=== PATIENT | female | born 1945 | race Native Hawaiian/Other Pacific Islander ===

== ENCOUNTER 2016-05-22 12:52 | Inpatient (IN) | payer MEDICARE, OTHER ==
[~2016-05-22] VITALS: Ht 152.4 cm; Wt 55.3 kg
[2016-05-22] MEDS ORDERED: MORPHINE SULFATE 2 MG/1 ML DISP.SYRIN IV ONE (13:15)
[2016-05-22] MEDS ORDERED: ONDANSETRON 4 MG/2 ML VIAL IV ONE (13:15)
[2016-05-22] MEDS ORDERED: ONDANSETRON 4 MG/2 ML VIAL ONE (13:25)
[2016-05-22] MEDS ORDERED: MORPHINE SULFATE 4 MG/1 ML DISP.SYRIN ONE (13:25)
[2016-05-22 13:35] LABS: BASOPHILS % (AUTO) 0.8 % (0.0-2.0); EOSINOPHILS # (AUTO) 0.1 K/uL (0.0-0.7); EOSINOPHILS % (AUTO) 1.5 % (0.0-7.0); HEMATOCRIT 40.7 % (37.0-47.0); HEMOGLOBIN 14.2 g/dL (12.0-16.0); LYMPHOCYTES # (AUTO) 2.1 K/uL (0.8-4.8); LYMPHOCYTES % (AUTO) 33.6 % (20.5-51.5); MEAN CORPUSCULAR HGB CONC 35 g/dL (32.0-37.0); MEAN CORPUSCULAR VOLUME 94.5 fL (81.0-99.0); MONOCYTES # (AUTO) 0.3 K/uL (0.1-1.30); NEUTROPHILS # (AUTO) 3.7 K/uL (1.8-8.9); NEUTROPHILS % (AUTO) 59.1 % (38.5-71.5); PLATELET COUNT (AUTO) 208 K/uL (150-450); RED CELL DISTRIBUTION WIDTH 12.8 % (11.5-14.5); WHITE BLOOD COUNT (AUTO) 6.2 K/uL (4.0-11.2)
[2016-05-22 13:40] LABS: *BILIRUBIN,URIN NEGATIVE (NEGATIVE); *BLOOD, URINE NEGATIVE (NEGATIVE); *CLARITY,URINE CLEAR (CLEAR); *COLOR,URINE LIGHT YELLOW (YELLOW); *KETONES,URINE NEGATIVE (NEGATIVE); *PROTEIN,URINE NEGATIVE (NEGATIVE); *UROBILINOGEN,URINE 0.2 E.U./dl (NORMAL); LEUKOCYTE ESTERASE ,URINE NEGATIVE (NEGATIVE); NITRITE, URINE NEGATIVE (NEGATIVE); UGLUCOSE NEGATIVE (NEGATIVE)
[2016-05-22 13:43] LABS: CALCIUM 9.1 mg/dL (8.5-10.1); CARBON DIOXIDE 31 mmol/L (21-32); CHLORIDE 103 mmol/L (98-107); CREATININE 0.7 mg/dL (0.6-1.3); ETHANOL < 3 MG/DL (0-0); GFR 83 mL/min (>60); GLUCOSE 98 mg/dL (74-106); POTASSIUM 3.6 mmol/L (3.5-5.1); SODIUM SERUM 142 mmol/L (136-145); UREA NITROGEN, BLOOD 18 mg/dL (7-18)
[2016-05-22 13:49] LABS: ALANINE AMINOTRANSFERASE 36 U/L (14-59); ALKALINE PHOSPHATASE 56 U/L (50-136); ASPARTATE AMINOTRANSFERASE 24 U/L (15-37); BACTERIA,URINE NONE SEEN /HPF (NONE SEEN); BILIRUBIN,DIRECT 0.1 mg/dL (0.0-0.2); BILIRUBIN,TOTAL 0.4 mg/dL (0.2-1.0); RBC,URINE 0-3 /HPF (0-3); SQUAMOUS EPITHELIAL CELL,UR FEW /HPF (NONE SEEN); TOTAL PROTEIN, SERUM 7.2 g/dL (6.4-8.2); WBC,URINE 0-3 /HPF (0-3)
[2016-05-22 13:50] LABS: ACETAMINOPHEN < 2.0 ug/mL (10-30); TROPONIN I < 0.017 ng/mL (0.00-0.056)
[2016-05-22 13:51] LABS: *AMPHETAMINE, URINE NEGATIVE (NEGATIVE); *BARBITURATE, URINE NEGATIVE (NEGATIVE); *CANNABINOID, URINE NEGATIVE (NEGATIVE); *COCCAINE, URINE NEGATIVE (NEGATIVE); *OPIATE, URINE POSITIVE (NEGATIVE); *PHENCYCLIDINE SCREEN,URINE NEGATIVE (NEGATIVE); AMMONIA 22 umol/L (11-32)
[2016-05-22 13:58] LABS: LACTIC ACID 0.6 mmol/L (0.4-2.0)
--- NOTE | 2016-05-22 14:02 | NUR ---
Patient is resting comfortably in bed with eyes closed, NAD
[2016-05-22] MEDS ORDERED: ASPI81TA44 PO (16:13)
[2016-05-22] MEDS ORDERED: CELEBREX (16:28)
[2016-05-22] MEDS ORDERED: FLUOXETINE (16:28)
[2016-05-22] MEDS ORDERED: LINZESS (16:28)
[2016-05-22] MEDS ORDERED: VALSARTAN (16:28)
[2016-05-22] MEDS ORDERED: LORTAB (16:28)
[2016-05-22] MEDS ORDERED: BENADRYL (16:28)
[2016-05-22] MEDS ORDERED: AMBIEN (16:28)
[2016-05-22] MEDS ORDERED: GABAPENTIN (16:28)
[2016-05-22] MEDS ORDERED: CREON (16:28)
[2016-05-22] MEDS ORDERED: NORVASC (16:28)
[2016-05-22 17:00] VITALS: BP 156/88
[2016-05-22] MEDS ORDERED: ONDANSETRON 4 MG/2 ML VIAL IV PRN (17:30)
[2016-05-22] MEDS ORDERED: Z GUARD REMEDY PASTE 57 GM TUBE TOP PRN (17:30)
[2016-05-22] MEDS ORDERED: hydrALAZINE HCL 25 MG TABLET PO PRN (18:15)
[2016-05-22] MEDS: MORPHINE SULFATE 2 MG/1 ML DISP.SYRIN IV PRN (19:28)
[2016-05-22 19:31] VITALS: BP 95/58
--- NOTE | 2016-05-22 20:00 | NUR ---
RECEIVED PATIENT AWAKE IN BED. PATIENT IS A/O X4. MOHAWK SPEAKING BUT SPEAKS MINIMAL EQUATORIAL GUINEAN AND ABLE TO MAKE NEEDS KNOWN. NO C/O PAIN AT THIS TIME. PATIENT WAS PREVIOUSLY MEDICATED WITH MORPHINE 2MG IV PER DAYSHIFT RN. VSKay. NO RESP. DISTRESS NOTED. H/L INTACT AND PATENT. BED ALARM ON. CALL LIGHT IN REACH. ALL NEEDS ATTENDED. WILL CONTINUE TO MONITOR.
--- NOTE | 2016-05-22 20:15 | NUR ---
PATIENT ON TELE SR.
[2016-05-22 20:18] VITALS: BP 106/60
[2016-05-22] MEDS: LORATADINE 10 MG TABLET PO SCH (20:42)
[2016-05-22] MEDS: ACETAMINOPHEN 325 MG TABLET PO PRN (22:59)
--- NOTE | 2016-05-22 23:00 | NUR ---
PATIENT AWAKE IN BED. C/O GENERALIZED DISCOMFORT. PATIENT GIVEN TYLENOL 650MG PO PRN FOR MILD PAIN. WILL CONTINUE TO MONITOR.
[2016-05-23 00:05] VITALS: BP 130/73
[2016-05-23] MEDS: MORPHINE SULFATE 2 MG/1 ML DISP.SYRIN IV PRN ×4 (01:03→21:06)
--- NOTE | 2016-05-23 01:05 | NUR ---
PATIENT AWAKE IN BED. C/O PAIN IN NECK AND BACK. PATIENT GIVEN MORPHINE 2MG IV PRN PER VETERINARY SCIENCE TEACHER. VSS. CALL LIGHT IN REACH. ALL NEEDS ATTENDED. WILL CONTINUE TO MONITOR.
[2016-05-23 04:00] VITALS: BP 103/58
--- NOTE | 2016-05-23 05:48 | NUR ---
PATIENT AWAKE IN BED. DENIES PAIN OR DISCOMFORT. NO RESP. DISTRESS NOTED. VSS. SLEPT AT INTERVALS. BED ALARM ON. CALL LIGHT IN REACH. ALL NEEDS ATTENDED. WILL CONTINUE TO MONITOR.
[2016-05-23] MEDS: PANTOPRAZOLE SODIUM 40 MG TABLET.DR PO SCH (06:01)
--- NOTE | 2016-05-23 06:08 | NUR ---
PATIENT ON TELE, SINUS RHYTHM.
[2016-05-23 07:28] LABS: BASOPHILS % (AUTO) 0.8 % (0.0-2.0); EOSINOPHILS # (AUTO) 0.1 K/uL (0.0-0.7); EOSINOPHILS % (AUTO) 2.7 % (0.0-7.0); HEMATOCRIT 44.6 % (37.0-47.0); HEMOGLOBIN 14.7 g/dL (12.0-16.0); LYMPHOCYTES # (AUTO) 2.4 K/uL (0.8-4.8); LYMPHOCYTES % (AUTO) 51.8 % (20.5-51.5); MEAN CORPUSCULAR HEMOGLOBIN 32.2 uug (27.0-31.0); MEAN CORPUSCULAR HGB CONC 33 g/dL (32.0-37.0); MEAN CORPUSCULAR VOLUME 97.5 fL (81.0-99.0); MONOCYTES # (AUTO) 0.3 K/uL (0.1-1.30); MONOCYTES % (AUTO) 6.6 % (0.0-11.0); NEUTROPHILS # (AUTO) 1.8 K/uL (1.8-8.9); NEUTROPHILS % (AUTO) 38.1 % (38.5-71.5); PLATELET COUNT (AUTO) 208 K/uL (150-450); RED BLOOD CELL COUNT(AUTO) 4.57 MIL/uL (4.20-5.40); RED CELL DISTRIBUTION WIDTH 13.1 % (11.5-14.5); WHITE BLOOD COUNT (AUTO) 4.6 K/uL (4.0-11.2)
[2016-05-23 07:33] LABS: THYROID STIMULATING HORMONE 3.71 mIU/mL (0.358-3.740)
[2016-05-23 07:35] LABS: ALBUMIN 3.8 g/dL (3.4-5.0); BILIRUBIN,TOTAL 0.5 mg/dL (0.2-1.0); CREATININE 0.9 mg/dL (0.6-1.3); MAGNESIUM 2.1 mg/dL (1.8-2.4); PHOSPHOROUS 3.6 mg/dL (2.5-4.9); POTASSIUM 4.7 mmol/L (3.5-5.1); TOTAL PROTEIN, SERUM 7.2 g/dL (6.4-8.2)
--- NOTE | 2016-05-23 07:45 | NUR ---
awake alert and oriented, states has pain all over with scale of 10- medicated with Morphine 2mg iv as prn, tele SR 63, explained plan of care- verbalized understanding, fall risk observed, bed alarm on and call light within reach.
[2016-05-23] MEDS: LORATADINE 10 MG TABLET PO SCH (08:29)
[2016-05-23] MEDS ORDERED: ASPIRIN EC 81 MG TABLET.DR PO SCH (09:00)
[2016-05-23 11:08] VITALS: BP 112/63
--- NOTE | 2016-05-23 13:00 | NUR ---
seen by PT and OT- see notes, 2D echo was also done at bedside
--- NOTE | 2016-05-23 15:00 | NUR ---
c/o generalized pain- medicatd width Morphine 2mg iv as prn, wanted to have thoracic spine CT.
[2016-05-23 15:06] VITALS: BP 116/72
--- NOTE | 2016-05-23 15:15 | NUR ---
Dr Santamaria called and informed of pt's asking for CT thoracic spine- no order given
--- NOTE | 2016-05-23 18:46 | NUR ---
resting in bed , no distress noted, wears mask, states "doesn't want to get sick while in hospital", safety measures maintained, call light within reach, bed alarm on
[2016-05-23 20:00] VITALS: BP 109/74
[2016-05-24] MEDS: MORPHINE SULFATE 2 MG/1 ML DISP.SYRIN IV PRN ×3 (04:08→16:59)
[2016-05-24 05:28] VITALS: BP 100/65
--- NOTE | 2016-05-24 05:49 | NUR ---
PT SLEPT WELL, IN NO ACUTE DISTRESS. PAIN MANAGEMENT ORDERED. CALL LIGHT WITHIN REACH, BED IN LOW POSITION, WILL CONTINUE TO MONITOR.
[2016-05-24] MEDS: PANTOPRAZOLE SODIUM 40 MG TABLET.DR PO SCH (06:00)
--- NOTE | 2016-05-24 08:00 | NUR ---
AWAKE, ALERT, AND ORIENTED X4.COMFORTABLE WITHOUT C/O PAIN AT PRESENT. TAKING BREAKFAST WITHOUT N/V AND WITH GOOD APPETITE. NO ABDOMINAL DISCOMFORT.NO NEURO DEFICITS, DIZZINESS WHILE AMBULATING TO BATHROOM WITH ASSIST.
[2016-05-24] MEDS: LORATADINE 10 MG TABLET PO SCH (08:07)
[2016-05-24 11:59] VITALS: BP 119/83
[2016-05-24 15:51] VITALS: BP 119/90
--- NOTE | 2016-05-24 18:32 | NUR ---
Pt is in no acute distress. Pt pain managed with morphine. put pt back to bed. tolerated physical therapy today. Call light is within reach.
[2016-05-24 20:00] VITALS: BP 120/70
[2016-05-24] MEDS ORDERED: BISACODYL 5 MG TABLET.DR PO ONE (20:00)
--- NOTE | 2016-05-24 20:07 | NUR ---
RECEIVED PT LYING DOWN IN BED, IN NO ACUTE DISTRESS, C/O OF GENERALIZED PAIN, REQUESTING WARM PACKS AND WARM BLANKETS, PROVIDED, PER PT "IT HELPS." MADE COMFORTABLE. PT REPORTS NO BM IN FEW DAYS, MD VENESSA BATRES MADE AWARE, NEW ORDER FOR DULCOLAX 10 MG PO X1, MAY REPEAT IF NO BM IN 4 HRS, RECEIVED, NOTED AND WILL CARRY OUT. WILL CONTINUE TO MONITOR.
[2016-05-25] MEDS: MORPHINE SULFATE 2 MG/1 ML DISP.SYRIN IV PRN ×3 (00:12→12:23)
[2016-05-25] MEDS ORDERED: BISACODYL 5 MG TABLET.DR PO ONE (00:15)
[2016-05-25] MEDS: ACETAMINOPHEN 325 MG TABLET PO PRN (02:07)
[2016-05-25] MEDS: PANTOPRAZOLE SODIUM 40 MG TABLET.DR PO SCH (06:07)
--- NOTE | 2016-05-25 06:55 | NUR ---
Pt in bed resting, in no acute distress throughout shift. C/o back/neck pain managed with prn morphine and hot packs per request. Call light is within reach. All needs met. Safety maintained.
[2016-05-25 06:57] VITALS: BP 124/85
--- NOTE | 2016-05-25 08:30 | NUR ---
Awake, alert, oriented x 4, on moderate high back rest, complaining of back pain
[2016-05-25] MEDS: LORATADINE 10 MG TABLET PO SCH (09:23)
[2016-05-25] MEDS ORDERED: HYDR-3326 PO (10:35)
[2016-05-25 11:16] VITALS: BP 100/60
[2016-05-25 15:12] VITALS: BP 124/54
--- NOTE | 2016-05-25 15:30 | NUR ---
With discharge order to SNF, arranged with [facility]. Report given to [facility]. Saline lock removed. Patient denies any family, will call/inform friend. Discharged per gurney/ambulance in fair condition, not in distress, afebrile.
== END 2016-05-25 13:30 | DRG 605 ==
LOC: ER 12:53 → TELE 16:28 → MED 05-23 11:20
PROVIDERS: ADMIT Internal Medicine; ATTEND Nurse Practitioner Acute Care
DX: S20.219A Contusion of unspecified front wall of thorax, initial encounter (principal); M48.06 Spinal stenosis, lumbar region; S80.01XA Contusion of right knee, initial encounter; S80.02XA Contusion of left knee, initial encounter; M47.815 Spondylosis without myelopathy or radiculopathy, thoracolumbar region; W01.198A Fall on same level from slipping, tripping and stumbling with subsequent striking against other object, initial encounter; Y92.480 Sidewalk as the place of occurrence of the external cause; S30.1XXA Contusion of abdominal wall, initial encounter
CPT/HCPCS: 36415; 70030-TC; 70450; 71010; 72125; 73560; 73600; 80307; 83605; 83735; 84100; 84443; 85025; 85730; 87040; 87086; 93005; 93307; 97001; 97003; 97116; 97530; A4663; G0480-TC; G6040-TC; J2270; J2405